=== PATIENT | female | born 1965 | race Caucasian/White ===

== ENCOUNTER 2017-11-13 12:39 | Emergency (ER) | payer MEDICAID ==
[2017-11-13] MEDS ORDERED: Propranolol 20 MG Tab PO ONE (13:18)
--- NOTE | 2017-11-13 13:19 | EDM.PDOC ---
ED HPI GENERAL MEDICAL PROBLEM - General Chief Complaint: Cardiovascular Problem Stated Complaint: HANDS TINGLING/BLOOD SUGAR PROBLEMS Time Seen by Provider: 11/13/17 12:53 Source of Information: Reports: Patient History Limitations: Reports: No Limitations - History of Present Illness INITIAL COMMENTS - FREE TEXT/NARRATIVE: The patient presents with a rapid heart rate. The patient woke up this morning and she felt something was not right. She has been having elevated blood sugars. She has not been put on metformin yet. She recently was put on levothyroxine. She has no chest pain. She feels a little anxious. Her heart is beating fast. She has no fever, chills, cough, abdominal pain, nausea and vomiting. She has no pain or edema in her legs. The patient says she has been having some "lady" issues lately and she is on control. She does smoke. Onset: Gradual Duration: Hour(s): Severity: Moderate Improves with: Reports: None Worsens with: Reports: None Associated Symptoms: Denies: Chest Pain, Cough, Fever/Chills, Headaches, Nausea/ Vomiting, Shortness of Breath - Related Data Allergies Allergy/AdvReac Type Severity Reaction Status Date / Time latex Allergy Itching Verified 11/13/17 12:57 prednisone Allergy Swelling Verified 11/13/17 12:57 Sulfa (Sulfonamide Allergy Vomiting Verified 11/13/17 12:57 Antibiotics) Home Meds: Home Meds ARIPiprazole [Aripiprazole] 20 mg PO DAILY 11/13/17 [History] Levothyroxine 25 mcg PO DAILY 11/13/17 [History] Mirtazapine 15 mg PO DAILY 11/13/17 [History] Norethindrone AC-Eth Estradiol [Tim 1.5 mg-30 Mcg Tablet] 1 tab PO DAILY 11/13 [History] Propranolol [Inderal] 20 mg PO BID 11/13/17 [History] risperiDONE 2 mg PO BID 11/13/17 [History] traMADol HCl [Tramadol HCl] 50 mg PO BID 11/13/17 [History] traZODone HCl [Trazodone HCl] 100 mg PO DAILY 11/13/17 [History] Past Medical History - Past Health History Medical/Surgical History: Denies Medical/Surgical History [employer] History: Reports: Dysfunctional Uterine Bleeding Psychiatric History: Reports: Other (See Below) Other Psychiatric History: schizoaffective disorder Endocrine/Metabolic History: Reports: Diabetes, Type II, Hypothyroidism - Past Surgical History GI Surgical History: Reports: Hernia Repair/Other Social & Family History - Tobacco Use Smoking Status *Q: Current Every Day Smoker Years of Tobacco use: 8 Packs/Tins Daily: 1 Second Hand Smoke Exposure: No - Caffeine Use Caffeine Use: Reports: Tea - Alcohol Use Days Per Week of Alcohol Use: 4 Number of Drinks Per Day: 1 Total Drinks Per Week: 4 - Recreational Drug Use Recreational Drug Use: No ED ROS GENERAL - Review of Systems Review Of Systems: See Below Constitutional: Reports: No Symptoms HEENT: Reports: No Symptoms Respiratory: Reports: No Symptoms Cardiovascular: Reports: Palpitations Endocrine: Reports: No Symptoms GI/Abdominal: Reports: No Symptoms : Reports: No Symptoms Musculoskeletal: Reports: No Symptoms ED EXAM, GENERAL - Physical Exam Exam: See Below Exam Limited By: No Limitations General Appearance: Alert, No Apparent Distress Ears: Normal External Exam Nose: Normal Inspection Head: Atraumatic, Normocephalic Neck: Normal Inspection Respiratory/Chest: No Respiratory Distress, Lungs Clear, Normal Breath Sounds Cardiovascular: No Edema, No Murmur, Tachycardia GI/Abdominal: Soft, Non-Tender, No Organomegaly, No Mass Extremities: Normal Inspection Neurological: Alert, Oriented, No Motor/Sensory Deficits EKG INTERPRETATION EKG Date: 11/13/17 Time: 13:36 Rhythm: Other (Sinus tachycardia) Rate (Beats/Min): 121 [place]: Normal P-Wave: Present QRS: Normal ST-T: Normal QT: Normal Course - Vital Signs Last Recorded V/S: Last Vital Signs Temp 98.9 F 11/13/17 12:44 Pulse 157 H 11/13/17 12:44 Resp 18 11/13/17 12:44 BP 157/97 H 11/13/17 12:44 Pulse Ox 97 11/13/17 12:44 - Orders/Labs/Meds Orders: Active Orders 24 hr Category Date Time Status Cardiac Monitoring [RC] . DIRECTED Care 11/13/17 13:17 Active EKG Documentation Completion [RC] STAT Care 11/13/17 13:17 Active Ang Chest [CT] Stat Exams 11/13/17 14:14 Taken Sodium Chloride 0.9% [Normal Saline] 100 ml Med 11/13/17 14:45 Active IV ASDIRECTED Sodium Chloride 0.9% [Saline Flush] Med 11/13/17 14:36 Active 10 ml FLUSH ONETIME PRN Medication Orders Sodium Chloride (Normal Saline) 100 mls @ 75 mls/hr IV ASDIRECTED PAYTON Last Admin: 11/13/17 15:05 Dose: 75 mls/hr Sodium Chloride (Saline Flush) 10 ml FLUSH ONETIME PRN PRN Reason: IV FLUSH Last Admin: 11/13/17 15:05 Dose: 10 ml Labs: Laboratory Tests 11/13/17 11/13/17 11/13/17 Range/Units 13:30 13:30 13:30 WBC 7.88 (3.98-10.04) K/mm3 RBC 4.29 (3.98-5.22) M/mm3 Hgb 12.4 (11.2-15.7) gm/L Hct 37.9 (34.1-44.9) % MCV 88.3 (79.4-94.8) fl MCH 28.9 (25.6-32.2) pg MCHC 32.7 (32.2-35.5) g/dl RDW Std Deviation 58.8 H (36.4-46.3) fL Plt Count 240 (182-369) K/mm3 MPV 9.4 (9.4-12.3) fl Neut % (Auto) 71.9 H (34.0-71.1) % Lymph % (Auto) 21.4 (19.3-51.7) % Cedar % (Auto) 5.1 (4.7-12.5) % Eos % (Auto) 1.1 (0.7-5.8) Baso % (Auto) 0.4 (0.1-1.2) % Neut # (Auto) 5.66 (1.56-6.13) K/mm3 Lymph # (Auto) 1.69 (1.18-3.74) K/mm3 Cedar # (Auto) 0.40 H (0.24-0.36) K/mm3 Eos # (Auto) 0.09 (0.04-0.36) K/mm3 Baso # (Auto) 0.03 (0.01-0.08) K/mm3 D-Dimer, Quantitative 1.54 H (0.19-0.50) mg/L Sodium 139 (136-145) mEq/L Potassium 3.8 (3.5-5.1) mEq/L Chloride 103 (98-107) mEq/L Carbon Dioxide 24 (21-32) mEq/L Anion Gap 15.8 H (5-15) BUN 12 (7-18) mg/dL Creatinine 1.0 (0.55-1.02) mg/dL Est Cr Clr Drug Dosing 55.68 mL/min Estimated GFR (MDRD) 59 (>60) mL/min BUN/Creatinine Ratio 12.0 L (14-18) Glucose 198 H (74-106) mg/dL Calcium 8.5 (8.5-10.1) mg/dL Magnesium 1.7 L (1.8-2.4) mg/dl Total Bilirubin 0.2 (0.2-1.0) mg/dL AST 22 (15-37) U/L ALT 34 (14-59) U/L Alkaline Phosphatase 71 (46-116) U/L Troponin I 0.028 (0.00-0.056) ng/mL Total Protein 7.2 (6.4-8.2) g/dl Albumin 3.1 L (3.4-5.0) g/dl Globulin 4.1 gm/dL Albumin/Globulin Ratio 0.8 L (1-2) TSH 3rd Generation 1.409 (0.358-3.74) uIU/mL Meds: Medications Generic Name Dose Route Start Last Admin Trade Name Freq PRN Reason Stop Dose Admin Sodium Chloride 100 mls @ 75 mls/hr 11/13/17 14:45 11/13/17 15:05 Normal Saline IV 75 mls/hr ASDIRECTED PAYTON Administration Sodium Chloride 10 ml 11/13/17 14:36 11/13/17 15:05 Saline Flush FLUSH 10 ml ONETIME PRN Administration IV FLUSH Discontinued Medications Generic Name Dose Route Start Last Admin Trade Name Freq PRN Reason Stop Dose Admin Iopamidol 100 ml 11/13/17 14:36 11/13/17 15:05 Isovue-370 (76%) IVPUSH 11/13/17 14:37 60 ml ONETIME ONE Administration Propranolol HCl 20 mg 11/13/17 13:18 11/13/17 13:54 Inderal PO 11/13/17 13:19 20 mg ONETIME ONE Administration - Re-Assessments/Exams Free Text/Narrative Re-Assessment/Exam: 11/13/17 14:58 I ordered labs, EKG and propranolol 20mg by mouth. Her EKG shows a sinus tachycardia with no acute changes. Her CBC looks good. Her D-dimer was elevated at 1.54. I have ordered a CT angio of her chest. Her anion gap was elevated at 15.8. Her glucose was elevated at 198. Her magnesium was just a little low at 1.7. Her troponin was negative and her TSH was normal. 11/13/17 15:[address] shows no evidence of acute pulmonary embolism and trace pleural effusions. She feels better now. Her heart rate is down now. She says she is supposed to take the atenolol as needed but she has been taking it 2 times per day for awhile. She says she is taking it for anxiety. She says when she gets anxious every thing runs fast. I asked if her heart race goes fast and then she gets anxious. She thinks it is the other way around. I will have her keep taking the propranolol 2 times per day. Departure - Departure Time of Disposition: 16:00 Disposition: Home, Self-Care 01 Condition: Good Clinical Impression: Palpitations Referrals: Michelle Kelly MD [Primary Care Provider] - 1 Week Forms: ED Department Discharge Additional Instructions: Take your medication as prescribed. Please return if you are worse. - My Orders Last 24 Hours: My Active Orders 11/13/17 13:17 Cardiac Monitoring [RC] . DIRECTED EKG Documentation Completion [RC] STAT 11/13/17 14:14 Ang Chest [CT] Stat 11/13/17 14:36 Sodium Chloride 0.9% [Saline Flush] 10 ml FLUSH ONETIME PRN 11/13/17 14:45 Sodium Chloride 0.9% [Normal Saline] 100 ml IV ASDIRECTED - Assessment/Plan Last 24 Hours: My Active Orders 11/13/17 13:17 Cardiac Monitoring [RC] . DIRECTED EKG Documentation Completion [RC] STAT 11/13/17 14:14 Ang Chest [CT] Stat 11/13/17 14:36 Sodium Chloride 0.9% [Saline Flush] 10 ml FLUSH ONETIME PRN 11/13/17 14:45 Sodium Chloride 0.9% [Normal Saline] 100 ml IV ASDIRECTED
[2017-11-13] MEDS ORDERED: Sodium Chloride 0.9% 10 ML Syringe FLUSH PRN (14:36)
[2017-11-13] MEDS ORDERED: Iopamidol 755 Mg/ML 100 ML Bottle IVPUSH ONE (14:36)
[2017-11-13] MEDS ORDERED: Sodium Chloride 0.9% 100 ML IV SCH (14:45)
--- NOTE | 2017-11-14 11:01 | CT ---
CT chest Technique: Multiple axial sections through the chest were obtained. Intravenous contrast was utilized. Study has been performed as a pulmonary angiogram protocol. Comparison: No prior chest imaging. Findings: Pulmonary arteries are fairly well-opacified. No filling defects are seen to indicate pulmonary embolism. Mediastinum and hilar regions show no adenopathy or mass. Mild coronary artery calcification is seen. No pericardial effusion is seen. Small portion of the visualized upper abdominal structures are within normal limits. Minimal bilateral pleural effusions are noted. Nodule identified within the right middle lobe measuring 6-7 mm in size. Lungs otherwise are clear without acute parenchymal change. Impression: 1. No findings of pulmonary embolism. 2. Minimal bilateral pleural effusions. 3. Right middle lobe nodule measuring 6-7 mm. Recommend repeat study in 6 months if patient is a smoker or [address] study if the patient is not a smoker. Diagnostic code #9 I agree with preliminary report issued by [facility] ([facility] report finalized on 11/13/17, 4:17 PM Central Time)
== END 2017-11-13 16:15 | disposition home or self-care (01) ==
LOC: JD.ED 12:39
DX: R00.2 Palpitations (principal); F17.210 Nicotine dependence, cigarettes, uncomplicated; Z91.040 Latex allergy status; Z88.8 Allergy status to other drugs, medicaments and biological substances; Z88.2 Allergy status to sulfonamides; Z79.899 Other long term (current) drug therapy
CPT/HCPCS: 36415; 71275; 80053; 83735; 84443; 84484; 85025; 85379; 93005; 99285; A9270; J7030; J7050; Q9967; 93010; 99284-25

== ENCOUNTER 2017-12-23 11:26 | Emergency (ER) | payer MEDICAID ==
--- NOTE | 2017-12-23 12:11 | EDM.PDOC ---
ED HPI GENERAL MEDICAL PROBLEM - General Chief Complaint: Cardiovascular Problem Stated Complaint: HIGH BLOOD PRESSURE Time Seen by Provider: 12/23/17 11:40 Source of Information: Reports: Patient History Limitations: Reports: No Limitations - History of Present Illness INITIAL COMMENTS - FREE TEXT/NARRATIVE: 52-year-old female presenting with chief complaint of high blood pressure. Patient has a history of anxiety and hypertension for which she is prescribed propranolol by her primary care provider. She's been on this for about a year with no dosage changes. Recently she was directed to keep a blood pressure log by her PCP, today while checking her blood pressure first thing in the morning it was 171/118. Patient was a asymptomatic at that time and no chest pain shortness of breath headache or dizziness no visual changes either. She was alarmed with the numbers and so presented to the emergency department. While being wheeled back to the room from the triage area she said she had very mild chest tightness, which subsided less than a minute. Denies Shortness of breath. Patient has no history of ACS, diabetes or hyperlipidemia. She does smoke, about 30 pack year history. Plans to quit Associated Symptoms: Reports: No Other Symptoms Chest Pain Score (Numeric/FACES): 3 - Related Data Allergies Allergy/AdvReac Type Severity Reaction Status Date / Time latex Allergy Itching Verified 12/23/17 11:43 prednisone Allergy Swelling Verified 12/23/17 11:43 Sulfa (Sulfonamide Allergy Vomiting Verified 12/23/17 11:43 Antibiotics) Home Meds: Home Meds ARIPiprazole [Aripiprazole] 20 mg PO DAILY 11/13/17 [History] Levothyroxine 25 mcg PO DAILY 11/13/17 [History] Mirtazapine 15 mg PO DAILY 11/13/17 [History] Norethindrone AC-Eth Estradiol [Tim 1.5 mg-30 Mcg Tablet] 1 tab PO DAILY 11/13 [History] Propranolol [Inderal] 20 mg PO BID 11/13/17 [History] risperiDONE 2 mg PO BID 11/13/17 [History] traMADol HCl [Tramadol HCl] 50 mg PO BID 11/13/17 [History] traZODone HCl [Trazodone HCl] 100 mg PO DAILY 11/13/17 [History] Past Medical History - Past Health History Medical/Surgical History: Denies Medical/Surgical History Cardiovascular History: Reports: Hypertension [employer] History: Reports: Dysfunctional Uterine Bleeding Psychiatric History: Reports: Other (See Below) Other Psychiatric History: schizoaffective disorder Endocrine/Metabolic History: Reports: Diabetes, Type II, Hypothyroidism - Past Surgical History GI Surgical History: Reports: Hernia Repair/Other Social & Family History - Tobacco Use Smoking Status *Q: Current Every Day Smoker Years of Tobacco use: 8 Packs/Tins Daily: 1 - Caffeine Use Caffeine Use: Reports: Tea ED ROS GENERAL - Review of Systems Review Of Systems: See Below Constitutional: Reports: No Symptoms HEENT: Reports: No Symptoms Respiratory: Reports: No Symptoms Cardiovascular: Reports: Other (chest tightness) GI/Abdominal: Reports: No Symptoms : Reports: No Symptoms Musculoskeletal: Reports: No Symptoms Skin: Reports: No Symptoms Neurological: Reports: No Symptoms Psychiatric: Reports: No Symptoms Hematologic/Lymphatic: Reports: No Symptoms Immunologic: Reports: No Symptoms ED EXAM, GENERAL - Physical Exam Exam: See Below Exam Limited By: No Limitations General Appearance: Alert, No Apparent Distress Head: Atraumatic, Normocephalic Neck: Normal Inspection Respiratory/Chest: No Respiratory Distress, Lungs Clear, Normal Breath Sounds Cardiovascular: Normal Peripheral Pulses, Regular Rate, Rhythm GI/Abdominal: Soft, Non-Tender Neurological: Alert, Oriented, CN II-XII Intact, No Motor/Sensory Deficits Psychiatric: Normal Affect, Normal Mood Skin Exam: Warm, Dry, Intact EKG INTERPRETATION EKG Date: 12/23/17 Time: 11:46 Rhythm: NSR Rate (Beats/Min): 89 Woden: LAD-Left Woden Deviation P-Wave: Present QRS: Normal QT: Normal GA/PQ Interval: 135 Comparison: NA - No Prior EKG (some signs of LVH by voltage criteria) Course - Vital Signs Last Recorded V/S: Last Vital Signs Temp 36.2 C 12/23/17 11:44 Pulse 92 12/23/17 11:44 Resp 18 12/23/17 11:44 BP 152/94 H 12/23/17 11:44 Pulse Ox 95 12/23/17 11:44 - Orders/Labs/Meds Orders: Active Orders 24 hr Category Date Time Status EKG Documentation Completion [RC] STAT Care 12/23/17 11:48 Active - Re-Assessments/Exams Free Text/Narrative Re-Assessment/Exam: 12/23/17 12:17 Differential diagnosis: Essential hypertension, unlikely hypertensive urgency or emergency 52-year-old female history of anxiety and hypertension presenting with chief complaint of high blood pressure at home monitor. Upon initial evaluation the patient had normal vital signs with a normal blood pressure. She was briefly symptomatically some chest pressure while being wheeled back from the waiting room. However it subsided within a minute with no intervention. Otherwise the patient is in asymptomatic when she's had hypertension. Plan is to discharge patient home and follow-up with her PCP for blood pressure medication adjustment. 12/24/17 12:48 Departure - Departure Time of Disposition: 12:00 Disposition: Home, Self-Care 01 Condition: Good Clinical Impression: Hypertension Qualifiers: Hypertension type: essential hypertension Qualified Code(s): I10 - Essential ( primary) hypertension Instructions: Heart Disease Prevention, How to Take Your Blood Pressure Referrals: Michelle Kelly MD [Primary Care Provider] - Forms: ED Department Discharge Additional Instructions: You were evaluated in the emergency department today for high blood pressure. Your blood pressure and symptoms were not serious enough today to necessitate further diagnostic testing. It is safe free to go home at this time. Please follow up closely with your PCP for blood pressure medication adjustment. If at anytime he have new or worsening chest pain, shortness of breath, dizziness headache or visual changes and our concern flees present to the emergency department as soon as possible. - My Orders Last 24 Hours: My Active Orders 12/23/17 11:48 EKG Documentation Completion [RC] STAT - Assessment/Plan Last 24 Hours: My Active Orders 12/23/17 11:48 EKG Documentation Completion [RC] STAT
== END 2017-12-23 12:33 | disposition home or self-care (01) ==
LOC: JD.ED 11:26
DX: I10 Essential (primary) hypertension (principal); F41.9 Anxiety disorder, unspecified; E11.9 Type 2 diabetes mellitus without complications; E03.9 Hypothyroidism, unspecified; F17.210 Nicotine dependence, cigarettes, uncomplicated; Z91.040 Latex allergy status; Z88.2 Allergy status to sulfonamides; Z79.899 Other long term (current) drug therapy
CPT/HCPCS: 93005; 99285-25